=== PATIENT | male | born 1995 | race Caucasian/White ===

== ENCOUNTER 2020-09-22 18:31 | Emergency (ER) | payer OTHER ==
[2020-09-22 18:47] VITALS: BP 130/91; PULSE 80; TEMP 99; BMI 26.2
[2020-09-22] MEDS ORDERED: DIPHTH,PERTUSS(ACELL),TET 0.5 ML DISP.SYRIN IM ONE (19:37)
[2020-09-22] MEDS ORDERED: RABIES VACCINE (PCEC)/PF 2.5 UNIT/VIAL IM ONE ×2 (19:37→20:59)
[2020-09-22] MEDS ORDERED: RABIES IMMUNE GLOBULIN 300 UNITS/1 ML VIAL IM ONE (19:37)
== END 2020-09-22 22:43 | disposition home or self-care (01) ==
LOC: JER 18:31 → JERFT 18:31
PROC: 3E0234Z Introduction of Serum, Toxoid and Vaccine into Muscle, Percutaneous Approach (ICD-10-PCS; principal; 2020-09-22)
DX: S41.151A Open bite of right upper arm, initial encounter (principal)
CPT/HCPCS: 73060-TC-RT-FY; 73070-TC-RT-FY; 90375; 90675; 99284-25

== ENCOUNTER 2020-09-25 07:39 | Emergency (ER) | payer OTHER ==
[2020-09-25] MEDS ORDERED: RABIES VACCINE (PCEC)/PF 2.5 UNIT/VIAL IM ONE ×2 (07:46→07:58)
[2020-09-25 07:53] VITALS: BP 121/68; PULSE 69; TEMP 98.4; BMI 29.7
== END 2020-09-25 08:00 | disposition home or self-care (01) ==
LOC: JERFT 07:39 → JER 07:39 → JERFT 08:00
PROC: 3E0234Z Introduction of Serum, Toxoid and Vaccine into Muscle, Percutaneous Approach (ICD-10-PCS; principal; 2020-09-25)
DX: Z23 Encounter for immunization (principal)
CPT/HCPCS: 90675; 99283-25

== ENCOUNTER 2020-09-29 07:30 | Emergency (ER) | payer OTHER ==
[2020-09-29 07:36] VITALS: BP 119/84; PULSE 78; TEMP 98; BMI 26.5
[2020-09-29] MEDS ORDERED: RABIES VACCINE (PCEC)/PF 2.5 UNIT/VIAL IM ONE ×2 (07:59→08:16)
== END 2020-09-29 08:55 | disposition home or self-care (01) ==
LOC: JER 07:30
PROC: 3E0234Z Introduction of Serum, Toxoid and Vaccine into Muscle, Percutaneous Approach (ICD-10-PCS; principal; 2020-09-29)
DX: Z20.3 Contact with and (suspected) exposure to rabies (principal)
CPT/HCPCS: 90675; 99282-25

== ENCOUNTER 2020-10-06 09:35 | Emergency (ER) | payer OTHER ==
[2020-10-06 09:50] VITALS: BP 116/80; PULSE 70; TEMP 98.7; BMI 26.4
[2020-10-06] MEDS ORDERED: RABIES VACCINE (PCEC)/PF 2.5 UNIT/VIAL IM ONE ×2 (10:05→10:29)
== END 2020-10-06 10:30 | disposition home or self-care (01) ==
LOC: JER 09:35
PROC: 3E0234Z Introduction of Serum, Toxoid and Vaccine into Muscle, Percutaneous Approach (ICD-10-PCS; principal; 2020-10-06)
DX: Z20.3 Contact with and (suspected) exposure to rabies (principal)
CPT/HCPCS: 90675; 99283-25